=== PATIENT | female | born 1945 | race Caucasian/White ===

== ENCOUNTER 2019-08-31 07:06 | Outpatient (CLI) | payer MEDICARE, OTHER ==
[2019-08-31 11:44] LABS: #Basophils 0.1 thou/uL (0.0-0.2); #Eosinphils 0.2 thou/uL (0.0-0.7); #Lymphocytes 3.2 thou/uL (1.20-3.40); #Monocytes 0.8 thou/uL (0.11-0.59); %Basophils 0.7 % (0.0-1.0); %Eosinophils 2.7 % (0.0-10.0); %Monocytes 9.4 % (0.0-10.0); %Neutrophils 48.2 % (42.0-75.0); Hemoglobin 14.3 g/dL (12.0-16.0); Mean Corpuscular HGB CONC 32.4 g/dL (32.0-36.0); Mean Corpuscular Hemoglobin 30.8 pg (27.0-31.0); Mean Corpuscular Volume 94.9 fL (78.0-98.0); Mean Platelet Volume 7.7 fL (7.4-10.4); Platelet Count 399 thou/uL (130-400); RBC Distribution Width 11.6 % (11.5-14.5); Red Blood Cell (RBC) Count 4.65 mill/uL (4.20-5.40); White Blood Cell (WBC) Count 8.3 thou/uL (4.8-10.8)
[2019-08-31 12:31] LABS: Anion Gap 11 mmol/L (10-20); BUN (Urea Nitrogen) 29 mg/dL (9.8-20.1); Calc. Creatinine Clearance 0 mL/min (70-130); Calcium 9.1 mg/dL (7.8-10.44); Carbon Dioxide 27 mmol/L (23-31); Chloride 105 mmol/L (98-107); Estimated GFR-MDRD 67; Glucose 83 mg/dL (83-110); Sodium 138 mmol/L (136-145)
[2019-08-31 13:03] LABS: Bacteria/HPF None Seen HPF (None Seen); Bilirubin Negative (Negative); Blood, Urine Negative (Negative); Clarity Clear (Clear); Glucose, Urine (Dipstick) Normal (Negative); Leukocyte Negative Leu/uL (Negative); Nitrite Negative (Negative); Protein, Urine (Dipstick) Negative (Neg-Trace); RBC/HPF 0-3 HPF (0-3); Urobilinogen Normal mg/dL (Less than 2); WBC/HPF 0-3 HPF (0-3)
[2019-08-31 15:16] LABS: INR-International Normal Ratio 0.9; Prothrombin Time 12.5 sec (12.0-14.7)
[2019-09-01 11:54] LABS: SARS-CoV-2 MS2 Positive; SARS-CoV-2 N Gene Negative; SARS-CoV-2 S Gene Negative; SARS-CoV-2 orf1ab Negative
== END 2019-08-31 07:07 | disposition home or self-care (01) ==
LOC: LABBT 07:06
PROVIDERS: ATTEND Orthopaedic Surgery
DX: Z01.818 Encounter for other preprocedural examination (principal); Z11.59 Encounter for screening for other viral diseases; M17.11 Unilateral primary osteoarthritis, right knee
CPT/HCPCS: 80048; 81001; 85025; 85610; 87081; U0003; 87635

== ENCOUNTER 2019-09-05 06:35 | Observation (INO) | payer MEDICARE ==
[2019-08-30 11:20] VITALS: BMI 27.4
[2019-09-05] MEDS ORDERED: Sodium Chloride 0.9% 100 ML ONE (07:02)
[2019-09-05] MEDS ORDERED: Tranexamic Acid 1,000 MG/10 ML VIAL ONE ×2 (07:02→11:47)
[2019-09-05] MEDS ORDERED: Vancomycin 1 GM/200 ML BAG ONE (07:02)
[2019-09-05] MEDS ORDERED: Fentanyl 100 MCG/2 ML VIAL ONE ×4 (07:55→11:40)
[2019-09-05] MEDS ORDERED: Midazolam HCl 2 mg/2 ml Vial ONE (07:55)
[2019-09-05] MEDS ORDERED: Bupivacaine PF 0.5% 30 ML VIAL ONE (08:18)
[2019-09-05] MEDS ORDERED: methylPREDNISolone Acetate 40 mg/ml Vial ONE (08:18)
[2019-09-05] MEDS ORDERED: Lidocaine 1% (PF) 30 ML VIAL ONE (08:18)
[2019-09-05] MEDS ORDERED: Zolpidem Tartrate 5 MG TAB PO PRN ×2 (08:39→09:39)
[2019-09-05] MEDS ORDERED: Promethazine HCl 25 MG/ML VIAL IM PRN ×3 (08:39→10:14)
[2019-09-05] MEDS ORDERED: traMADol HCl 50 MG TAB PO PRN ×2 (08:39)
[2019-09-05] MEDS ORDERED: Ropivacaine HCl/PF 250 ML in Premix Bag 1 BAG NERVE BLCK SCH (08:39)
[2019-09-05] MEDS ORDERED: HYDROcodone/Acetaminophen 10/325 mg Tablet PO PRN (08:39)
[2019-09-05] MEDS ORDERED: Ondansetron PF 4 MG/2 ML Vial IVP PRN ×2 (08:39→09:39)
[2019-09-05] MEDS ORDERED: Fentanyl 100 MCG/2 ML VIAL SLOW IVP PRN (08:40)
[2019-09-05] MEDS ORDERED: diphenhydrAMINE 25 MG CAP PO PRN (09:39)
[2019-09-05] MEDS ORDERED: Acetaminophen 325 MG TAB PO PRN (09:39)
[2019-09-05] MEDS ORDERED: Tranexamic Acid 1,000 MG in Sodium Chloride 0.9% 100 ML IVPB SCH (09:45)
[2019-09-05] MEDS ORDERED: PACU-Morphine 4MG/ML VIAL SLOW IVP PRN (10:14)
[2019-09-05] MEDS ORDERED: Promethazine HCl 25 MG/ML VIAL SLOW IVP PRN (10:14)
[2019-09-05] MEDS ORDERED: Meperidine HCl/PF 25 MG/ML VIAL SLOW IVP PRN (10:14)
[2019-09-05] MEDS ORDERED: PROPOFOL 200 MG/20 ML VIAL ONE (11:35)
[2019-09-05] MEDS ORDERED: Ropivacaine 0.5% HCl/PF (150 MG/30 ML VIAL) ONE (11:35)
[2019-09-05] MEDS ORDERED: Ondansetron PF 4 MG/2 ML Vial ONE ×2 (11:35→12:14)
[2019-09-05] MEDS ORDERED: Dexamethasone 20 MG/5 ML VIAL ONE (11:35)
[2019-09-05] MEDS ORDERED: Ropivacaine 0.2% HCl/PF (40 MG/20 ML VIAL) ONE (11:35)
[2019-09-05] MEDS ORDERED: EPINEPHrine 1 MG/10 ML Abboject SYRINGE ONE (11:35)
[2019-09-05] MEDS ORDERED: Lidocaine 1% PF 5 ML VIAL ONE (11:35)
[2019-09-05] MEDS ORDERED: Promethazine HCl 25 MG/ML VIAL ONE (12:33)
--- NOTE | 2019-09-05 14:02 | OP ---
DATE OF PROCEDURE: 09/05/2019 PREOPERATIVE DIAGNOSIS: Bilateral knee arthritis, right worse than left. POSTOPERATIVE DIAGNOSIS: Bilateral knee arthritis, right worse than left. PROCEDURES PERFORMED: 1. Right total knee replacement using [employer] pinless navigation. 2. Left knee corticosteroid injection. TOOL WORKER: Abel Benavidez PA-C ESTIMATED BLOOD LOSS: Minimal. COMPLICATIONS: None. ANESTHESIA: She had general anesthetic. She also had a preoperative block of the right leg. IMPLANTS: The right knee includes [employer] total knee system. The femur was a size 3 cruciate retaining. We used a size 3 primary tibial baseplate. We used a 3 x 9 mm CS X3 tibial bearing and an asymmetric 29 x 9 X3 patella. DISPOSITION: She did go to recovery room in stable condition. INDICATIONS: This is an active 74-year-old female, who comes in after failing nonoperative treatment for right knee severe arthritis, wanting to have a right knee replaced and a left knee corticosteroid injection at the same time. DESCRIPTION OF PROCEDURE: After all appropriate consent forms were explained and signed, she was taken back to the operating room, and at this time was given a general anesthetic. Once the level of anesthesia was appropriate, the left knee was injected with 80 mg of Depo-Medrol and plain lidocaine. At this time, we then turned our attention to the right lower extremity. After all appropriate consent forms were explained and signed, the patient was taken back to the operating room and at this time was given general anesthetic. Once the level of anesthesia was appropriate, a well-padded tourniquet was placed on the right leg, and the leg was then prepped and draped in standard surgical fashion. The limb was exsanguinated and tourniquet taken up to 300 mmHg. Midline incision was made with a 10 blade down through the skin and subcutaneous tissue. Bovie electrocautery was used to coagulate any brisk venous bleeding. A new blade was used to make a medial parapatellar arthrotomy. Small subperiosteal release was performed medially and excess fat pad was removed. The knee was flexed up to gain access to the femur. The femur was navigated and distal femoral resection was made. Epicondylar access was used to align our sizing jig and this was pinned in place. We sized our femur to be a size 3 cruciate retaining. 4:1 cutting block was applied and pinned. Anterior and posterior chamfer cuts were then made. We navigated out our proximal tibia and made our proximal tibial resection. Spreaders were used to remove any posterior osteophytes off the back of the femur as well as remaining meniscal tissue. A long alignment alyssa was then used to achieve correct rotation of our tibial baseplate and we used a size 3 primary tibial baseplate was chosen. This was pinned in place. We trialed the polyethylene and we used a 3 x 9 mm CS X3 tibial bearing polyethylene gave us full extension and good stability throughout range of motion. Two towel clips and a saw were used to cut our patella. Three lug nuts were drilled and an asymmetric 29 x 9 X3 patella was trialed which sat nicely in the trochlear groove. We then drilled our femur and punched our tibia. All components were removed. The knee was thoroughly irrigated and dried. Cement was mixed into the cement gun on the back table. Components were then placed. The knee was held out in full extension until the cement had dried. All excess bone cement was removed. Multiple #2 Vicryl stitches as well as a Quill were used to close our extensor mechanism. 0 Quill followed by a running Monoderm was then used to close the skin. Surgicel glue was then used on the skin. Once this had dried, soft tissue dressing was applied to the limb, tourniquet was let down, and the toes pinked up nicely. The patient was then awakened and taken to the recovery room in stable condition. All counts were correct at the end of the case. The patient did receive preoperative IV antibiotics. The patient was injected with Marcaine for postoperative pain relief. Job ID: [id number]
[2019-09-05] MEDS: Sodium Chloride 0.9% 1,000 ML IV SCH ×2 (15:19→20:10)
[2019-09-05] MEDS: CEFAZOLIN 2 GM in Premix Bag 1 BAG IVPB SCH ×2 (15:20→23:18)
[2019-09-05] MEDS: Ketorolac Tromethamine 30 MG/ML VIAL IVP SCH ×3 (16:08→23:18)
--- NOTE | 2019-09-05 19:33 | PDOC.HOSPP ---
- Subjective Encounter Date: 09/05/19 Encounter Time: 19:33 Subjective: Patient seen and examined for medical mngt. Pain controlled. No CP. No new complaints. - Objective Vital Signs & Weight: Vital Signs (12 hours) Temp Pulse Resp BP Pulse Ox 09/05/19 13:15 97.8 F 76 16 145/74 H 96 Weight Weight 150 lb Result Diagrams: 09/07/19 05:39 Additional Labs: Laboratory Tests 08/30/19 08:58 Sodium 138 Chloride 105 Creatinine 0.84 EKG Reviewed by me: Yes (SR) Hospitalist ROS - Review of Systems Respiratory: denies: cough, dry, shortness of breath, hemoptysis, SOB with excertion, pleuritic pain, sputum, wheezing, other Cardiovascular: denies: chest pain, palpitations, orthopnea, paroxysmal noc. dyspnea, edema, light headedness, other - Medication Medications: Active Medications Generic Name Dose Route Start Last Admin Trade Name Freq PRN Reason Stop Dose Admin Cefazolin Sodium/Dextrose 2 gm 50 mls @ 100 mls/hr 09/05/19 15:00 09/05/19 15 :20 / Device IVPB 09/05/19 23:29 50 mls 0700,1500,2300 MELISSA Administration Sodium Chloride 1,000 mls @ 100 mls/hr 09/05/19 09:45 09/05/19 15:19 Normal Saline 0.9% IV 1,000 mls .Q10H MELISSA Administration Ketorolac Tromethamine 15 mg 09/05/19 12:00 09/05/19 17:56 Toradol IVP 09/07/19 06:01 15 mg Q6HR MELISSA Administration - Exam General Appearance: NAD Neck: supple, no JVD Heart: RRR, no gallops Respiratory: no wheezes, no ronchi Gastrointestinal: non-tender, non-distended, normal bowel sounds, no rigidity Extremities: no cyanosis, no clubbing Neurological: no new deficit Psychiatric: normal affect, A&O x 3 Hosp A/P - Plan DVT proph w/SCDs HTN HLD Hypothyroidism DJD CKD 2 PLAN: Cont Amlodipine Change Benazepril to 20 mg BID Add holding parameters for HTN meds PT/OT DVT prophylaxis Full code. DPOA - spouse
[2019-09-05] MEDS ORDERED: Vancomycin 1 GM in Premix Bag 1 BAG IVPB SCH (20:00)
[2019-09-05] MEDS: Aspirin 81 mg Enteric Coated Tablet PO SCH (20:12)
[2019-09-05] MEDS: Lisinopril 20 MG TAB PO SCH (20:12)
[2019-09-06 05:17] LABS: Hemoglobin 12.9 g/dL (12.0-16.0); Mean Corpuscular HGB CONC 33.4 g/dL (32.0-36.0); Mean Corpuscular Volume 92.9 fL (78.0-98.0); Mean Platelet Volume 7.2 fL (7.4-10.4); Platelet Count 342 thou/uL (130-400); RBC Distribution Width 11.3 % (11.5-14.5); Red Blood Cell (RBC) Count 4.16 mill/uL (4.20-5.40); White Blood Cell (WBC) Count 16.9 thou/uL (4.8-10.8)
[2019-09-06] MEDS: Sodium Chloride 0.9% 1,000 ML IV SCH ×2 (05:22→15:45)
[2019-09-06] MEDS: Ketorolac Tromethamine 30 MG/ML VIAL IVP SCH ×4 (05:23→23:42)
[2019-09-06] MEDS: Levothyroxine Sodium 75 MCG TAB PO SCH (05:23)
[2019-09-06] MEDS: Senokot S 8.6-50 MG TAB PO SCH ×2 (08:24→20:35)
[2019-09-06] MEDS: Ferrous Gluconate 324 MG TAB PO SCH ×2 (08:24→17:06)
[2019-09-06] MEDS: Lisinopril 20 MG TAB PO SCH ×2 (08:24→20:36)
[2019-09-06] MEDS: Amlodipine 5 MG TAB PO SCH (08:25)
[2019-09-06] MEDS: Aspirin 81 mg Enteric Coated Tablet PO SCH ×2 (08:25→20:34)
[2019-09-06] MEDS: Multivitamin W/ Minerals 1 TAB PO SCH (08:25)
[2019-09-06] MEDS ORDERED: Lisinopril 20 MG TAB PO SCH (09:00)
[2019-09-06] MEDS ORDERED: Amlodipine 5 MG TAB PO SCH (09:00)
--- NOTE | 2019-09-06 14:00 | PRG ---
DATE OF SERVICE: 09/06/2019 SUBJECTIVE: Marely is a 74-year-old female, postop day #1 from right total knee arthroplasty. She is doing very well. She is more comfortable now than she was when she was admitted. She has no complaints. Her pain is very well controlled. OBJECTIVE: VITAL SIGNS: Temperature 98.2, pulse 90, respiratory rate 16, and blood pressure is 134/80. GENERAL: She is alert and oriented to person, place, time, and situation. Responsive and appropriate with examiner. EXTREMITIES: Incision is clean. No strikethrough. No erythema. No malrotation. No shortening. LABORATORY DATA: Hemoglobin and hematocrit 12.9 and 38.6. IMPRESSION: A 74-year-old female, postop day #1, right total knee arthroplasty, doing well. PLAN: Continue current care. Discharge to home tomorrow. Job ID: [id number]
[2019-09-06] MEDS: HYDROcodone/Acetaminophen 10/325 mg Tablet PO PRN (17:06)
[2019-09-07] MEDS: Sodium Chloride 0.9% 1,000 ML IV SCH ×2 (01:49→11:45)
[2019-09-07] MEDS: Levothyroxine Sodium 75 MCG TAB PO SCH (05:16)
[2019-09-07] MEDS: Ketorolac Tromethamine 30 MG/ML VIAL IVP SCH (05:16)
[2019-09-07] MEDS: HYDROcodone/Acetaminophen 10/325 mg Tablet PO PRN ×2 (05:20→13:10)
[2019-09-07 06:00] LABS: Hemoglobin 13.2 g/dL (12.0-16.0); Mean Corpuscular HGB CONC 33.4 g/dL (32.0-36.0); Mean Corpuscular Hemoglobin 31.1 pg (27.0-31.0); Mean Corpuscular Volume 93.1 fL (78.0-98.0); Mean Platelet Volume 7.3 fL (7.4-10.4); Platelet Count 370 thou/uL (130-400); RBC Distribution Width 11.5 % (11.5-14.5); Red Blood Cell (RBC) Count 4.24 mill/uL (4.20-5.40); White Blood Cell (WBC) Count 15.2 thou/uL (4.8-10.8)
[2019-09-07] MEDS: Ferrous Gluconate 324 MG TAB PO SCH (08:33)
[2019-09-07] MEDS: Lisinopril 20 MG TAB PO SCH (08:34)
[2019-09-07] MEDS: Aspirin 81 mg Enteric Coated Tablet PO SCH (08:34)
[2019-09-07] MEDS: Senokot S 8.6-50 MG TAB PO SCH (08:34)
[2019-09-07] MEDS: Amlodipine 5 MG TAB PO SCH (08:34)
[2019-09-07] MEDS: Multivitamin W/ Minerals 1 TAB PO SCH (08:35)
--- NOTE | 2019-09-07 10:14 | PDOC.HOSPP ---
- Subjective Encounter Date: 09/06/19 Encounter Time: 15:40 Subjective: Patient seen and examined for med mngt. Pain controlled. No new complaints. No overnight events - Objective Vital Signs & Weight: Vital Signs (12 hours) Temp Pulse Resp BP BP BP Pulse Ox 09/07/19 08:34 142/83 H 09/07/19 08:00 98.1 F 70 18 151/69 H 99 09/07/19 04:02 98.1 F 87 16 165/94 H 97 09/06/19 23:49 99.1 F 78 16 162/87 H 98 Weight Admit Weight 150 lb Weight 150 lb I&O: 09/06/19 09/07/19 09/08/19 06:59 06:59 06:59 Intake Total 1500 2024 Output Total [id number] Balance -325 -25 Result Diagrams: 09/07/19 05:39 Hospitalist ROS - Review of Systems Respiratory: denies: cough, dry, shortness of breath, hemoptysis, SOB with excertion, pleuritic pain, sputum, wheezing, other Cardiovascular: denies: chest pain, palpitations, orthopnea, paroxysmal noc. dyspnea, edema, light headedness, other Gastrointestinal: denies: nausea, vomiting, abdominal pain, diarrhea, constipation, melena, hematochezia, other - Medication Medications: Active Medications Generic Name Dose Route Start Last Admin Trade Name Freq PRN Reason Stop Dose Admin Hydrocodone Bitart/Acetaminophen 1 tab 09/05/19 08:39 09/07/19 05:20 Benton 10/325 PO 1 tab Q4H PRN Administration Pain (1-3) Amlodipine Besylate 5 mg 09/06/19 09:00 09/07/19 08:34 Norvasc PO 5 mg QAM MELISSA Administration Aspirin 81 mg 09/05/19 21:00 09/07/19 08:34 Ecotrin PO 81 mg BID MELISSA Administration Ferrous Gluconate 324 mg 09/06/19 08:00 09/07/19 08:33 Fergon PO 324 mg BID-WM MELISSA Administration Ropivacaine 250 ml/ Device 250 mls @ 10 mls/hr 09/05/19 08:39 09/06/19 11:25 NERVE BLCK 09/08/19 08:38 250 mls INF MELISSA Administration Sodium Chloride 1,000 mls @ 100 mls/hr 09/05/19 09:45 09/07/19 01:49 Normal Saline 0.9% IV Not Given .Q10H MELISSA Iron/Minerals/Multivitamins 1 tab 09/06/19 09:00 09/07/19 08:35 Theragran M PO 1 tab DAILY MELISSA Administration Levothyroxine Sodium 75 mcg 09/06/19 06:00 09/07/19 05:16 Synthroid PO 75 mcg 0600 MELISSA Administration Lisinopril 20 mg 09/05/19 21:00 09/07/19 08:34 Zestril PO 20 mg BID MELISSA Administration Senna/Docusate Sodium 2 tab 09/06/19 09:00 09/07/19 08:34 Senokot S PO 2 tab BID MELISSA Administration Sodium Chloride 10 ml 09/05/19 09:39 09/06/19 20:35 Flush - Normal Saline IVF 10 ml PRN PRN Administration Saline Flush - Exam General Appearance: NAD Neck: supple, no JVD Heart: RRR, no gallops Respiratory: no wheezes, no rales Gastrointestinal: soft, non-tender, normal bowel sounds Extremities: no cyanosis, no clubbing Neurological: no new deficit Psychiatric: A&O x 3 Hosp A/P - Plan DVT proph w/SCDs HTN HLD Hypothyroidism DJD CKD 2 PLAN: Cont Amlodipine Cont ACEI Cont Levothyroxine Cont other meds as above
[2019-09-07 11:49] VITALS: BP 158/81; TEMP 98
--- NOTE | 2019-09-08 07:46 | EKG ---
Test Reason : PREOP Blood Pressure : / mmHG Vent. Rate : 077 BPM Atrial Rate : 077 BPM P-R Int : 146 ms QRS Dur : 094 ms QT Int : 386 ms P-R-T Axes : 047 036 038 degrees QTc Int : 436 ms Normal sinus rhythm Normal ECG Confirmed by DR. Katya FOX ([id number]) on 09/08/2019 7:46:18 AM Referred By: IERO Confirmed By:DR. Katya FOX
== END 2019-09-07 13:35 | disposition home or self-care (01) ==
LOC: SDC 06:35 → SJJU 07:00 → SDC 16:45
PROVIDERS: ADMIT Orthopaedic Surgery; ATTEND Orthopaedic Surgery
PROC: 0SRC0J9 Replacement of Right Knee Joint with Synthetic Substitute, Cemented, Open Approach (ICD-10-PCS; principal; 2019-09-05)
PROC: 8E0YXBZ Computer Assisted Procedure of Lower Extremity (ICD-10-PCS; 2019-09-05)
PROC: 3E0U33Z Introduction of Anti-inflammatory into Joints, Percutaneous Approach (ICD-10-PCS; 2019-09-05)
PROC: 3E0T3BZ Introduction of Anesthetic Agent into Peripheral Nerves and Plexi, Percutaneous Approach (ICD-10-PCS; 2019-09-05)
PROC: 3E0T3BZ Introduction of Anesthetic Agent into Peripheral Nerves and Plexi, Percutaneous Approach (ICD-10-PCS; 2019-09-05)
DX: M17.0 Bilateral primary osteoarthritis of knee (principal); G89.18 Other acute postprocedural pain; I12.9 Hypertensive chronic kidney disease with stage 1 through stage 4 chronic kidney disease, or unspecified chronic kidney disease; N18.2 Chronic kidney disease, stage 2 (mild); E78.5 Hyperlipidemia, unspecified; M81.0 Age-related osteoporosis without current pathological fracture; E03.9 Hypothyroidism, unspecified; Z79.899 Other long term (current) drug therapy; Z88.8 Allergy status to other drugs, medicaments and biological substances
CPT/HCPCS: 20610; 20985; 27447; 64448; 64450; 85027 ×2; 93005; 97110 ×2; 97116 ×2; 97139 ×2; 97530 ×3; C1713; C1776; 36415; 93010; 96361; 96365; 96367; 96375; 96376; G0378; J0171; J0690; J1100; J1885; J2001; J2250; J2405; J2550; J2704; J2795; J2920; J3010; J3370; J3490; S0020

== ENCOUNTER 2020-01-11 06:43 | Outpatient (CLI) | payer MEDICARE, OTHER ==
--- NOTE | 2020-01-11 08:44 | RAD ---
XR Chest Pa Lat STANDARD HISTORY: Preoperative evaluation COMPARISON: None FINDINGS: The heart size is normal. The lungs are well expanded without focal areas of consolidation, pneumothorax or pleural effusions. IMPRESSION: No radiographic evidence of acute cardiopulmonary process.
[2020-01-11 08:47] LABS: #Basophils 0.1 10x3/uL (0.0-0.2); #Eosinphils 0.2 10x3/uL (0.0-0.5); #Monocytes 0.7 10x3/uL (0.0-1.1); #Neutrophils 4.1 10x3/uL (1.5-8.4); %Basophils 1.1 % (0.0-2.0); %Eosinophils 2.1 % (0.0-6.0); %Monocytes 7.7 % (0.0-10.0); %Neutrophils 48.9 % (40.0-75.0); Hemoglobin 14.2 g/dL (12.0-16.0); Mean Corpuscular HGB CONC 32.1 G/DL (32.0-36.0); Mean Corpuscular Hemoglobin 29.6 PG (27.0-33.0); Mean Corpuscular Volume 92.3 fl (80.0-100.0); Mean Platelet Volume 9.6 fl (7.4-10.4); Platelet Count 442 10x3/uL (130-400); Red Blood Cell (RBC) Count 4.79 10x6/uL (3.90-5.20); White Blood Cell (WBC) Count 8.4 10x3/uL (4.5-11.0)
[2020-01-11 08:56] LABS: Bilirubin Neg (Negative); Blood, Urine Negative (Negative); Glucose, Urine (Dipstick) Normal (Negative); Ketone, Urine Negative (Negative); Leukocyte Negative (Negative); Nitrite Negative (Negative); Protein, Urine (Dipstick) Negative (Neg-Trace); Urobilinogen Normal mg/dL (Less than 2); pH, Urine 6.5 (5.0-9.0)
[2020-01-11 09:00] LABS: PTT 25.9 sec (22.0-33.0); Prothrombin Time 10.1 sec (9.5-12.1)
[2020-01-11 09:03] LABS: Clarity Clear (Clear)
[2020-01-11 09:04] LABS: RBC/HPF None Seen HPF (0-3); Squamous Epithelial 0-3 HPF (0-3); WBC/HPF None Seen HPF (0-3)
[2020-01-11 09:05] LABS: Bacteria/HPF None Seen HPF (None Seen)
[2020-01-11 09:42] LABS: Anion Gap 22 mmol/L (10-20); BUN (Urea Nitrogen) 17 mg/dL (9.8-20.1); Calc. Creatinine Clearance 0 mL/min (70-130); Calcium 9.5 mg/dL (7.8-10.44); Carbon Dioxide 18 mmol/L (23-31); Chloride 108 mmol/L (98-107); Estimated GFR-MDRD 78; Glucose 90 mg/dL (83-110); Potassium 4.6 mmol/L (3.5-5.1); Sodium 143 mmol/L (136-145)
[2020-01-11 15:56] LABS: SARS-CoV-2 MS2 Positive; SARS-CoV-2 N Gene Negative; SARS-CoV-2 S Gene Negative; SARS-CoV-2 by NAA Not Detected (NotDetected); SARS-CoV-2 orf1ab Negative
== END 2020-01-11 06:44 | disposition home or self-care (01) ==
LOC: LABBT 06:43
PROVIDERS: ATTEND Orthopaedic Surgery
DX: Z01.818 Encounter for other preprocedural examination (principal); M17.12 Unilateral primary osteoarthritis, left knee; Z20.828 Contact with and (suspected) exposure to other viral communicable diseases
CPT/HCPCS: 71046; 80048; 81001; 85025; 85610; 85730; 87081; 93005; U0003; 87635; 93010

== ENCOUNTER 2020-01-16 06:30 | Inpatient (IN) | payer MEDICARE ==
[2020-01-16] MEDS ORDERED: Vancomycin 1 GM/200 ML BAG ONE (06:50)
[2020-01-16] MEDS ORDERED: Tranexamic Acid 1,000 MG/10 ML VIAL ONE ×2 (07:56→11:14)
[2020-01-16] MEDS ORDERED: Sodium Chloride 0.9% 100 ML ONE (07:57)
[2020-01-16] MEDS ORDERED: Midazolam HCl 2 mg/2 ml Vial ONE (08:36)
[2020-01-16] MEDS ORDERED: Fentanyl 100 MCG/2 ML VIAL ONE ×3 (08:37→11:52)
[2020-01-16] MEDS ORDERED: Bupivacaine PF 0.5% 30 ML VIAL ONE (09:05)
[2020-01-16] MEDS ORDERED: Ropivacaine 0.2% HCl/PF (40 MG/20 ML VIAL) ONE (09:33)
[2020-01-16] MEDS ORDERED: Ondansetron PF 4 MG/2 ML Vial ONE ×2 (09:33→12:02)
[2020-01-16] MEDS ORDERED: PROPOFOL 200 MG/20 ML VIAL ONE (09:33)
[2020-01-16] MEDS ORDERED: Dexamethasone 20 MG/5 ML VIAL ONE (09:33)
[2020-01-16] MEDS ORDERED: Bupivacaine HCl 0.5%/Epinephrine 1:200,000/PF 30 ml Vial ONE (09:33)
[2020-01-16] MEDS ORDERED: Lidocaine 1% PF 5 ML VIAL ONE (09:33)
[2020-01-16] MEDS ORDERED: diphenhydrAMINE 25 MG CAP PO PRN (09:35)
[2020-01-16] MEDS ORDERED: Promethazine HCl 25 MG/ML VIAL IM PRN ×3 (09:35→11:31)
[2020-01-16] MEDS ORDERED: Zolpidem Tartrate 5 MG TAB PO PRN ×2 (09:35→09:45)
[2020-01-16] MEDS ORDERED: Fentanyl 100 MCG/2 ML VIAL SLOW IVP PRN ×2 (09:35→09:39)
[2020-01-16] MEDS ORDERED: HYDROcodone/Acetaminophen 10/325 mg Tablet PO PRN ×3 (09:35→09:45)
[2020-01-16] MEDS ORDERED: Ondansetron PF 4 MG/2 ML Vial IVP PRN ×2 (09:35→09:45)
[2020-01-16] MEDS ORDERED: traMADol HCl 50 MG TAB PO PRN ×3 (09:35→09:45)
[2020-01-16] MEDS ORDERED: Acetaminophen 325 MG TAB PO PRN (09:35)
[2020-01-16] MEDS ORDERED: Tranexamic Acid 1,000 MG in Sodium Chloride 0.9% 100 ML IVPB SCH (09:45)
[2020-01-16] MEDS ORDERED: Ropivacaine HCl/PF 250 ML in Premix Bag 1 BAG NERVE BLCK SCH (09:45)
[2020-01-16] MEDS ORDERED: Ketorolac Tromethamine 30 MG/ML VIAL IVP PRN (11:31)
[2020-01-16] MEDS ORDERED: Promethazine HCl 25 MG/ML VIAL SLOW IVP PRN (11:31)
[2020-01-16] MEDS ORDERED: Ondansetron HCl/PF 4 MG/2 ML Vial IVP PRN (11:31)
[2020-01-16] MEDS ORDERED: Meperidine HCl/PF 25 MG/ML VIAL ONE (11:36)
[2020-01-16] MEDS ORDERED: Ketorolac Tromethamine 30 MG/ML VIAL ONE (12:08)
[2020-01-16] MEDS ORDERED: Promethazine HCl 25 MG/ML VIAL ONE (12:19)
--- NOTE | 2020-01-16 13:17 | OP ---
DATE OF PROCEDURE: 01/16/2020 PREOPERATIVE DIAGNOSIS: Left knee osteoarthrosis. POSTOPERATIVE DIAGNOSIS: Left knee osteoarthrosis. PROCEDURE PERFORMED: Left total knee replacement using [employer] pinless navigation. CRANBERRY SORTER: Josh Serrano PA-C. Research Analyst surgeon was present throughout the procedure to include the approach, placement of the implants and closure. ESTIMATED BLOOD LOSS: Minimal. COMPLICATIONS: None. FINDINGS: The patient had extraordinarily soft bone and was noted to have some cracking of the medial cortex of the femur just next to the prosthesis without any evidence of full-thickness fracture. The patient was also noted to have a crack in the posterior tibia or PCL attaches. IMPLANTS: We used a size 2 cruciate-retaining left femur. We used size 2 primary tibial baseplate. We used a 2 x 9 mm CS X3 tibial bearing and asymmetric 27 x 8 X3 patella. DISPOSITION: She did go to recovery room in stable condition. INDICATIONS: This is a 74-year-old female, who had her right knee replaced in August and has done very well from that and at this time, she wished to have her left knee replaced at this time as well. PROCEDURE IN DETAIL: After all appropriate consent forms were explained and signed, the patient was taken back to the operating room and at this time was given general anesthetic. Once the level of anesthesia was appropriate, a well-padded tourniquet was placed on the left leg, and the leg was then prepped and draped in standard surgical fashion. The limb was exsanguinated and tourniquet taken up to 300 mmHg. Midline incision was made with a 10 blade down through the skin and subcutaneous tissue. Bovie electrocautery was used to coagulate any brisk venous bleeding. A new blade was used to make a medial parapatellar arthrotomy. Small subperiosteal release was performed medially and excess fat pad was removed. The knee was flexed up to gain access to the femur. The femur was navigated and distal femoral resection was made. Epicondylar access was used to align our sizing jig and this was pinned in place. We sized our femur to be size 2 cruciate-retaining left femur. 4:1 cutting block was applied and pinned. Anterior and posterior chamfer cuts were then made. We navigated out our proximal tibia and made our proximal tibial resection. Spreaders were used to remove any posterior osteophytes off the back of the femur as well as remaining meniscal tissue. A long alignment alyssa was then used to achieve correct rotation of our tibial baseplate and We used size 2 primary tibial baseplate was chosen. This was pinned in place. We trialed the polyethylene and we used a 2 x 9 mm CS X3 tibial bearing polyethylene gave us full extension and good stability throughout range of motion. Two towel clips and a saw were used to cut our patella. Three lug nuts were drilled and asymmetric 27 x 8 X3 patella was trialed which sat nicely in the trochlear groove. We then drilled our femur and punched our tibia. All components were removed. The knee was thoroughly irrigated and dried. Cement was mixed into the cement gun on the back table. Components were then placed. The knee was held out in full extension until the cement had dried. All excess bone cement was removed. Multiple #2 Vicryl stitches as well as a Quill were used to close our extensor mechanism. 0 Quill followed by a running Monoderm was then used to close the skin. Surgicel glue was then used on the skin. Once this had dried, soft tissue dressing was applied to the limb, tourniquet was let down, and the toes pinked up nicely. The patient was then awakened and taken to the recovery room in stable condition. All counts were correct at the end of the case. The patient did receive preoperative IV antibiotics. The patient was injected with Marcaine for postoperative pain relief. Job ID: [id number]
[2020-01-16] MEDS ORDERED: Ketorolac Tromethamine 30 MG/ML VIAL IVP SCH (14:00)
[2020-01-16 14:08] VITALS: BMI 28.7
[2020-01-16] MEDS: Ketorolac Tromethamine 30 MG/ML VIAL IVP SCH ×3 (14:39→23:21)
[2020-01-16] MEDS: CEFAZOLIN 2 GM in Premix Bag 1 BAG IVPB SCH ×2 (14:41→23:22)
[2020-01-16] MEDS: Sodium Chloride 0.9% 1,000 ML IV SCH ×2 (14:42→20:45)
[2020-01-16] MEDS: Aspirin 81 mg Enteric Coated Tablet PO SCH (20:46)
[2020-01-16] MEDS ORDERED: Vancomycin 1 GM in Premix Bag 1 BAG IVPB SCH (21:00)
[2020-01-16] MEDS ORDERED: Aspirin 81 mg Enteric Coated Tablet PO SCH (21:00)
[2020-01-17] MEDS: Sodium Chloride 0.9% 1,000 ML IV SCH ×2 (04:58→16:27)
[2020-01-17 05:11] LABS: Hemoglobin 12.9 g/dL (12.0-16.0); Mean Corpuscular HGB CONC 33.2 g/dL (32.0-36.0); Mean Corpuscular Hemoglobin 30.9 pg (27.0-31.0); Platelet Count 353 thou/uL (130-400); RBC Distribution Width 11.1 % (11.5-14.5); Red Blood Cell (RBC) Count 4.17 mill/uL (4.20-5.40)
[2020-01-17] MEDS: Ketorolac Tromethamine 30 MG/ML VIAL IVP SCH ×3 (05:12→17:59)
[2020-01-17] MEDS: Levothyroxine Sodium 75 MCG TAB PO SCH (05:13)
[2020-01-17] MEDS: Aspirin 81 mg Enteric Coated Tablet PO SCH ×2 (08:50→21:02)
[2020-01-17] MEDS: Lisinopril 20 MG TAB PO SCH (08:50)
[2020-01-17] MEDS: Multivitamin W/ Minerals 1 TAB PO SCH (08:51)
[2020-01-17] MEDS: Senokot S 8.6-50 MG TAB PO SCH ×2 (08:51→21:02)
[2020-01-17] MEDS: Ferrous Gluconate 324 MG TAB PO SCH ×2 (08:51→17:58)
[2020-01-17] MEDS: Amlodipine 5 MG TAB PO SCH (08:51)
[2020-01-17] MEDS: HYDROcodone/Acetaminophen 10/325 mg Tablet PO PRN ×3 (08:51→21:05)
[2020-01-18] MEDS: Ketorolac Tromethamine 30 MG/ML VIAL IVP SCH ×2 (00:35→05:19)
[2020-01-18] MEDS: Sodium Chloride 0.9% 1,000 ML IV SCH ×2 (00:40→14:39)
[2020-01-18] MEDS: Levothyroxine Sodium 75 MCG TAB PO SCH (05:20)
[2020-01-18 05:49] LABS: Hemoglobin 11.8 g/dL (12.0-16.0); Mean Corpuscular Hemoglobin 31.3 pg (27.0-31.0); Mean Corpuscular Volume 94.8 fL (78.0-98.0); Mean Platelet Volume 7.3 fL (7.4-10.4); Platelet Count 302 thou/uL (130-400); RBC Distribution Width 11.3 % (11.5-14.5); Red Blood Cell (RBC) Count 3.78 mill/uL (4.20-5.40); White Blood Cell (WBC) Count 12.9 thou/uL (4.8-10.8)
[2020-01-18] MEDS: HYDROcodone/Acetaminophen 10/325 mg Tablet PO PRN ×2 (08:01→12:45)
[2020-01-18] MEDS: Lisinopril 20 MG TAB PO SCH (08:02)
[2020-01-18] MEDS: Ferrous Gluconate 324 MG TAB PO SCH (08:03)
[2020-01-18] MEDS: Amlodipine 5 MG TAB PO SCH (08:03)
[2020-01-18] MEDS: Aspirin 81 mg Enteric Coated Tablet PO SCH (08:03)
[2020-01-18] MEDS: Multivitamin W/ Minerals 1 TAB PO SCH (08:04)
[2020-01-18] MEDS: Senokot S 8.6-50 MG TAB PO SCH (08:04)
[2020-01-18 12:32] VITALS: BP 155/81; TEMP 98.9
== END 2020-01-18 15:10 | disposition home or self-care (01) | DRG 470 ==
LOC: SDC 06:30 → SJJU 09:35 → SDC 01-18 13:05
PROVIDERS: ADMIT Orthopaedic Surgery; ATTEND Orthopaedic Surgery
PROC: 0SRD0J9 Replacement of Left Knee Joint with Synthetic Substitute, Cemented, Open Approach (ICD-10-PCS; principal; 2020-01-16)
DX: M17.12 Unilateral primary osteoarthritis, left knee (principal); I10 Essential (primary) hypertension; M81.0 Age-related osteoporosis without current pathological fracture; Z96.651 Presence of right artificial knee joint; Z90.710 Acquired absence of both cervix and uterus; Z88.8 Allergy status to other drugs, medicaments and biological substances
CPT/HCPCS: 36415; 85027; 86850; 86900; 86901; C1713; C1776; J0690; J1100; J1885; J2175; J2250; J2405; J2550; J2704; J2795; J3010; J3370; J3490; S0020

== ENCOUNTER 2022-03-03 10:26 | Inpatient (IN) | payer MEDICARE ==
[2022-03-03] MEDS ORDERED: Metoprolol Tartrate 5 MG/5 ML VIAL ONE (10:42)
[2022-03-03] MEDS ORDERED: Aspirin Chewable 81 MG TAB ONE (10:42)
[2022-03-03] MEDS ORDERED: Nitroglycerin 0.4 MG TAB (25 Tab Bottle) ONE (10:42)
[2022-03-03] MEDS ORDERED: Heparin 10,000 UNITS/ 10 ML VIAL ONE (10:43)
[2022-03-03] MEDS ORDERED: Lidocaine 1% (PF) 30 ML VIAL ONE (10:43)
[2022-03-03] MEDS ORDERED: Nitroglycerin 100MG/250ML BOT 250 ML ONE (10:43)
[2022-03-03] MEDS ORDERED: Nitroglycerin 2% Ointment 1 INCH/1 GM Packet ONE (10:45)
[2022-03-03] MEDS ORDERED: Morphine 4 MG/ML VIAL ONE ×2 (10:50→11:33)
[2022-03-03] MEDS ORDERED: FENTANYL 50 MCG/ML 1 ML VIAL ONE (11:00)
[2022-03-03] MEDS ORDERED: Midazolam HCl 2 mg/2 ml Vial ONE (11:01)
[2022-03-03 11:21] LABS: #Lymphocytes 3.5 thou/uL (1.20-3.40); #Monocytes 1.4 thou/uL (0.11-0.59); #Neutrophils 10.6 thou/uL (1.40-6.50); %Basophils 0.1 % (0.0-1.0); %Eosinophils 0.1 % (0.0-10.0); %Lymphocytes 22.3 % (21.0-51.0); %Monocytes 8.9 % (0.0-10.0); %Neutrophils 68.6 % (42.0-75.0); Hemoglobin 13.8 g/dL (12.0-16.0); Mean Corpuscular HGB CONC 32.6 g/dL (32.0-36.0); Mean Corpuscular Hemoglobin 32.9 pg (27.0-31.0); Mean Platelet Volume 7.9 fL (7.4-10.4); Platelet Count 372 10x3/uL (130-400); RBC Distribution Width 11.3 % (11.5-14.5); Red Blood Cell (RBC) Count 4.19 mill/uL (4.20-5.40); White Blood Cell (WBC) Count 15.4 10x3/uL (4.8-10.8)
[2022-03-03] MEDS ORDERED: Nitroglycerin 50 MG/250 ML BOT 250 ML ONE (11:33)
[2022-03-03 11:43] LABS: CKMB 14.8 ng/mL (0-6.6)
[2022-03-03 11:44] LABS: ALT (SGPT) 16 U/L (8-55); AST (SGOT) 27 U/L (5-34); Albumin 4.3 g/dL (3.4-4.8); Alkaline Phosphatase 55 U/L (40-110); Anion Gap 13 mmol/L (10-20); BUN (Urea Nitrogen) 17 mg/dL (9.8-20.1); Bilirubin, Total 0.8 mg/dL (0.2-1.2); Calc. Creatinine Clearance 0 mL/min (70-130); Calcium 9.6 mg/dL (7.8-10.44); Carbon Dioxide 23 mmol/L (23-31); Chloride 103 mmol/L (98-107); Estimated GFR 77; Glucose 117 mg/dL (83-110); Protein, Total 7.3 g/dL (5.8-8.1); Sodium 134 mmol/L (136-145)
[2022-03-03] MEDS ORDERED: Acetaminophen/Codeine 30-300mg Tablet PO PRN (12:06)
[2022-03-03] MEDS ORDERED: Nitroglycerin 0.4 MG TAB (25 Tab Bottle) SL PRN ×2 (12:06→12:15)
[2022-03-03] MEDS ORDERED: Sodium Chloride 0.9% 200 ML IV PRN (12:06)
[2022-03-03] MEDS ORDERED: Nitroglycerin 50 MG/250 ML BOT 250 ML IVPB SCH (12:15)
[2022-03-03] MEDS ORDERED: Aspirin 325 mg Enteric Coated Tablet PO SCH (12:15)
[2022-03-03] MEDS ORDERED: Enoxaparin Sodium 60 MG/0.6 ML SYRINGE SC SCH (12:30)
[2022-03-03] MEDS ORDERED: Morphine 4 MG/ML VIAL SLOW IVP PRN (12:38)
[2022-03-03 12:41] VITALS: BMI 34.0
[2022-03-03] MEDS ORDERED: Ondansetron PF 4 MG/2 ML Vial IVP PRN (12:55)
[2022-03-03 13:48] LABS: Troponin I 2.626 ng/mL (< 0.028)
[2022-03-03] MEDS: Enoxaparin Sodium 60 MG/0.6 ML SYRINGE SC SCH (13:53)
[2022-03-03] MEDS: Acetaminophen/Codeine 30-300mg Tablet PO PRN (13:54)
[2022-03-03] MEDS ORDERED: Iopamidol 370 76% 50 ML VIAL FS ONE (15:49)
[2022-03-03] MEDS ORDERED: Iopamidol 370 76% 100 ML VIAL ONE (15:49)
[2022-03-03 18:30] LABS: SARS-CoV-2 NAA Rapid Test Not Detected (NotDetected)
[2022-03-03] MEDS ORDERED: Atorvastatin Calcium 40 MG TAB PO SCH (21:00)
[2022-03-03] MEDS ORDERED: Metoprolol Tartrate 25 MG TAB PO SCH (21:00)
[2022-03-04] MEDS: Acetaminophen/Codeine 30-300mg Tablet PO PRN (00:02)
[2022-03-04] MEDS: Enoxaparin Sodium 60 MG/0.6 ML SYRINGE SC SCH (00:05)
[2022-03-04 01:12] VITALS: TEMP 98.7
[2022-03-04 04:47] LABS: Cardiac Risk 2.3 (Less than 4.5)
[2022-03-04] MEDS ORDERED: Losartan 25 MG TAB PO SCH (09:00)
[2022-03-04] MEDS ORDERED: Clopidogrel Bisulfate 75 MG TAB PO SCH (09:00)
[2022-03-04] MEDS ORDERED: Aspirin 325 mg Enteric Coated Tablet PO SCH (09:00)
== END 2022-03-04 05:35 | disposition expired ==
LOC: ERS 10:26 → CCL 10:59 → CCU 12:16
PROVIDERS: ADMIT Internal Medicine Cardiovascular Disease; ATTEND Internal Medicine Cardiovascular Disease
PROC: 4A023N7 Measurement of Cardiac Sampling and Pressure, Left Heart, Percutaneous Approach (ICD-10-PCS; principal; 2022-03-03)
PROC: B2111ZZ Fluoroscopy of Multiple Coronary Arteries using Low Osmolar Contrast (ICD-10-PCS; 2022-03-03)
PROC: B2151ZZ Fluoroscopy of Left Heart using Low Osmolar Contrast (ICD-10-PCS; 2022-03-03)
PROC: 3E033XZ Introduction of Vasopressor into Peripheral Vein, Percutaneous Approach (ICD-10-PCS; 2022-03-03)
DX: I21.09 ST elevation (STEMI) myocardial infarction involving other coronary artery of anterior wall (principal); I51.81 Takotsubo syndrome; I10 Essential (primary) hypertension; E78.00 Pure hypercholesterolemia, unspecified; F17.210 Nicotine dependence, cigarettes, uncomplicated; Z96.653 Presence of artificial knee joint, bilateral; M19.90 Unspecified osteoarthritis, unspecified site; I25.10 Atherosclerotic heart disease of native coronary artery without angina pectoris; I46.2 Cardiac arrest due to underlying cardiac condition
CPT/HCPCS: 36415; 71045; 80053; 80061; 82553; 84484; 85025; 93005; 93458; 94760; 96374; 96375; C1769; C1887; J1644; J1650; J2001; J2250; J2270; J2405; J3010; Q9967; U0002